=== PATIENT | female | born 1985 | race Caucasian/White ===

== ENCOUNTER → 2019-01-03 | Outpatient (CLI) | payer OTHER ==
[~2019-01-03] MED LIST: TRIA15CR40 TP
--- NOTE | 2019-01-04 15:06 | RADIOLOGY IMAGING REPORT ---
FACILITY: [facility] - [place], [place] PATIENT NAME: ANNEMARIE ETIENNE : [id number] MR: [id number] V: [id number] EXAM DATE: ORDERING PHYSICIAN: CATRINA DAVIS TECHNOLOGIST: Ravinder Oden RDMS, [facility] PROCEDURE:US LEFT BREAST COMPARISON:Prior Left breast Ultrasound of 06/28/18 INDICATIONS:six month follow up FINDINGS: In the 2 o'clock position of the Left breast 6cm from the nipple there is a complex partially cystic hypoechoic structure measuring 6.1 x 4.8 x 5mm & it's decreased in size when compared to the prior study at which time it measured 2.1 x 1.5 x 2.1cm. This may represent a collapsing cyst. Due to its persistence, however, 6 month follow up recommended. The previously noted hypoechoic nodule in the 3 o'clock position of the Left breast was not identified. DIAGNOSTIC CATEGORY 3--PROBABLY BENIGN FINDING. RECOMMENDATIONS: SIX MONTH FOLLOW-UP ULTRASOUND: LEFT BREAST. IMPRESSION: BIRADS 3: Probably benign finding. A 6 month follow up Left breast Ultrasound is recommended as described. Dictated by: Alexa Corey M.D. on 01/04/2019 at 11:22 Transcribed by: KAZ on 01/04/2019 at 14:39 Approved by: Alexa Corey M.D. on 01/04/2019 at 15:05 [facility]
== END ==
LOC: US 12-27 00:23
PROVIDERS: ATTEND Obstetrics & Gynecology
DX: N63.21 Unspecified lump in the left breast, upper outer quadrant (principal); Z80.3 Family history of malignant neoplasm of breast

== ENCOUNTER 2019-04-25 04:11 | Inpatient (IN) | payer OTHER ==
[2019-04-25] MEDS ORDERED: OXYTOCIN 30 UNIT/NS 500 ML 500 ML ONE (04:36)
[2019-04-25 05:01] LABS: PLATELET COUNT, AUTOMATED 200 K/uL (150-450)
[2019-04-25] MEDS ORDERED: METOCLOPRAMIDE 10 MG/2 ML SDV IVP PRN (05:20)
[2019-04-25] MEDS ORDERED: OXYTOCIN 30 UNIT/NS 500 ML 500 ML IV PRN (05:20)
[2019-04-25] MEDS ORDERED: FAMOTIDINE(*) 20MG/50ML PREMIX 50 ML IVPB PRN (05:20)
[2019-04-25] MEDS ORDERED: LR(*) 1000 ML BAG 1,000 ML IV SCH (05:20)
[2019-04-25] MEDS ORDERED: fentaNYL CITR 100 MCG/2 ML AMP IVP PRN (05:20)
[2019-04-25] MEDS ORDERED: LIDOCAINE 1% LOCAL 300 MG/30ML INJ PRN (05:20)
[2019-04-25] MEDS ORDERED: LIDOCAINE/SOD BICARB 8.4% SYR SC PRN (05:20)
[2019-04-25] MEDS ORDERED: cefOXitin/DEX(*) 2GM/50ML PREM 50 ML IVPB PRN (05:20)
--- NOTE | 2019-04-25 05:51 | History & Physical ---
History of Present Illness Age of Patient: 33 : 2 Para or TPAL: 1 EDC per LMP: May 07, 2019 Estimated Gestational Age: 38.2 Chief Complaint Labor History of Present Illness Presents in active labor and 8 cm dilation. Pt has history of PROM at 36 weeks with subsequent . Pt carries diagnosis of M.S. and has hypothyroidism well controlled. Last U/S showed baby at 85%ile. GBS negative. Past Medical, Surgical, Family and Obstetric Histories reviewed. Please see [facility] chart. History Patient's Blood Type: A Positive Rubella Status: Immune Group B Strep Screen: Negative Obstetrical History: @ 36 weeks Allergies: Coded Allergies: No Known Drug Allergies (Unverified , 02/09/18) Family History: FH: COPD (chronic obstructive pulmonary disease) FATHER, , Age:67 FH: breast cancer MOTHER, Age:66 FH: multiple sclerosis MOTHER, Age:66 Med Rec Home Meds Active Scripts Triamcinolone Acetonide 0.1% Cr 15 Gm Tube (TRIAMCINOLONE ACETONIDE 0.1% CREAM) 15 Gm Cream..g., 1 TRACEE TP BID for 30 Days, #1 TUBE 1 Refill Prov:ANA STEVENS 02/09/18 Review of Systems All Systems Reviewed/Normal: Yes, Except as Noted Exam General Exam General Apperance: Alert/Awake/No Acute Distress Neuro: No Gross deficits Cardiovascular: Regular Rate and Rhythm Respiratory: No Respiratory Distress Abdomen: Soft, Non-Tender, Non-Distended Integumentary: Skin Intact without Lesions or Rash Psychological: Alert & Oriented X3, Appropriate Mood & Affect Cervical Dialation: 9 Cervical Effacement (%): 100 Cervical Consistency: Soft Cervical Position: Anterior Station: 0 Presentation: Vertex Fetus Heart Tone Variabilty: Moderate FHT Accelerations: 15X15 FHT Category: I Medical Decision Making Data Points Result Diagram: 04/25/19 0449 VTE Prophylasis: Adult Deep Vein Thrombosis/Pulmonary: No Pharmacological Contraindicati: Pt at Low Risk for VTE Mechanical Contraindications: Pt at Low Risk for VTE Assessment and Plan 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
[2019-04-25] MEDS ORDERED: INFLUENZA VIRUS VAC 0.5ML SYR IM ONLY ONE (07:00)
[2019-04-25] MEDS ORDERED: LANOLIN OINT 7 GM TUBE TP PRN (07:00)
[2019-04-25] MEDS ORDERED: MAGNESIUM HYDROXIDE* 30ML UDCP PO PRN (07:00)
[2019-04-25] MEDS ORDERED: HYDROCORTISONE 2.5% CR 30GM TB PR PRN (07:00)
[2019-04-25] MEDS ORDERED: APAP/HYDROCODONE 325/5 TAB PO PRN (07:00)
[2019-04-25] MEDS ORDERED: BENZOCAINE 20% 60 ML BTL TP PRN (07:00)
[2019-04-25] MEDS ORDERED: GLYCERIN/WITCH HAZEL LEAF 1 PK TP PRN (07:00)
[2019-04-25] MEDS ORDERED: ACETAMINOPHEN 325 MG TAB PO PRN (07:00)
--- NOTE | 2019-04-25 07:02 | OB Delivery Note ---
Delivery Note Vaginal Delivery Type: Spont. Vaginal Delivery Delivery Date: Apr 25, 2019 Delivery Time: 06:42 Estimated Gestational Age(wks): 38.2 Delivery Anesthesia: Epidural Sex: Female [place] Apgars: 1 Minute (8), 5 Minute (9) Estimated Blood Loss: 100 Notes: Presented in labor and progressed to 8 cm rapidly. AROM at 0533 and progressed to complete. Pushing effectively brought baby to in DAVID position. Pe rineum stabilized and delivery over intact perineum. Rest of baby delivered without difficulty. Placenta delivered spontaneous and intact. No complications. Strategic Buyer in Attendence: No Copies to: CATRINA DAVIS MD ; CATRINA DAVIS MD Apr 25, 2019 07:02
[2019-04-25] MEDS: IBUPROFEN 800 MG TAB PO SCH ×2 (07:36→17:17)
[2019-04-25] MEDS ORDERED: LR(*) 1000 ML BAG 1,000 ML ONE (08:29)
[2019-04-25 09:00] VITALS: BP 94/51
[2019-04-25] MEDS: DOCUSATE CALCIUM 240 MG CAP PO SCH (10:05)
[2019-04-25 12:30] VITALS: BP 98/55
[2019-04-25 14:59] VITALS: BP 97/61
[2019-04-25 19:45] VITALS: BP 101/59
[2019-04-25 23:50] VITALS: BP 104/57
[2019-04-26] MEDS: IBUPROFEN 800 MG TAB PO SCH ×2 (01:14→08:45)
[2019-04-26 05:00] VITALS: BP 108/66
[2019-04-26] MEDS ORDERED: DIPHTH/TETANUS/ACEL. PERTUSSIS IM ONLY ONE (07:00)
[2019-04-26] MEDS ORDERED: MEASLES,MUMP,RUBELLA VAC 0.5ML SUBQ ONE (07:00)
--- NOTE | 2019-04-26 08:24 | OB/GYN Progress Note ---
OB Subjective Progress Notes Subjective Ambulating and voiding well. Pain well controlled. Bleeding light. GI: NEG Nausea : Voiding Well Pain: Mild OB Objective Physical Exam Vital Signs Date Time Temp Pulse Resp B/P (MAP) Pulse Ox O2 Delivery O2 Flow Rate FiO2 04/26/19 05:00 97.2 77 18 108/66 (80) 95 Room Air Intake and Output 04/26/19 07:02 Intake Total 240 ml Balance 240 ml Intake Oral 240 ml # Voids 1 General Appearance: Alert/Awake/No Acute Distress Neurological: No Gross deficits Cardiovascular: Normal Rhythm & Peripheral Pulses, Regular Rate and Rhythm Respiratory: No Respiratory Distress, Clear to Auscultation Abdomen: Soft, Non-Tender, Non-Distended, Fundus Firm, Non-Tender Integumentary: Skin Intact without Lesions or Rash Psychological: Alert & Oriented X3, Appropriate Mood & Affect Result Diagram: 04/26/19 0551 Assessment and Plan 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 Return to office at 6 weeks. CATRINA DAVIS MD Apr 26, 2019 08:24
[2019-04-26] MEDS ORDERED: IBUP800T37 PO (08:25)
[2019-04-26] MEDS ORDERED: LOR5/325 PO (08:25)
--- NOTE | 2019-04-26 08:27 | OB/GYN Discharge Summary ---
Discharge Summary Reason for Hosp/Final Diag: (1) Labor without complication (2) 38 weeks gestation of (3) care and examination immediately after delivery Hospital Course & Plan: Reviewed discharge instructions and precautions. Return to office at 6 weeks. Lates Vital Signs Vital Signs Date Time Temp Pulse Resp B/P (MAP) Pulse Ox O2 Delivery O2 Flow Rate FiO2 04/26/19 05:00 97.2 77 18 108/66 (80) 95 Room Air Result Diagram: 04/26/19 0551 Condition: Improved Discharge: Home, Self [facility] Meds Active Scripts Hydrocodone Bit/Acetaminophen (HYDROCODON-ACETAMINOPHEN 5-325) 1 Each Tablet, 1- 2 EACH PO Q4H PRN for PAIN, #10 TAB 0 Refills Prov:CATRINA KRUEGER MD 04/26/19 Triamcinolone Acetonide 0.1% Cr 15 Gm Tube (TRIAMCINOLONE ACETONIDE 0.1% CREAM) 15 Gm Cream..g., 1 TRACEE TP BID for 30 Days, #1 TUBE 1 Refill Prov:ANA STEVENS 02/09/18 Follow up Referrals: HE[facility] SPLITTER - In 6 Weeks @ [facility] with CATRINA KRUEGER MD Follow up with: Dr. Krueger [phone] Follow up in: 6 wks PP or PO Discharge Diet: As Tolerates Discharge Activity: As Tolerates, No Heavy Lifting x 6 wks, No Heavy Lifting > 10lb, Pelvic Rest Copies to: CATRINA KRUEGER MD ; CATRINA KRUEGER MD Apr 26, 2019 08:27
[2019-04-26] MEDS: DOCUSATE CALCIUM 240 MG CAP PO SCH ×2 (08:45→09:00)
[2019-04-26 10:51] VITALS: BP 110/63
== END 2019-04-26 12:20 | disposition home or self-care (01) | DRG 807 ==
LOC: OB 04:11
PROVIDERS: ADMIT Obstetrics & Gynecology; ATTEND Obstetrics & Gynecology
PROC: 10E0XZZ Delivery of Products of Conception, External Approach (ICD-10-PCS; principal; 2019-04-25)
PROC: 10907ZC Drainage of Amniotic Fluid, Therapeutic from Products of Conception, Via Natural or Artificial Opening (ICD-10-PCS; 2019-04-25)
DX: O99.354 Diseases of the nervous system complicating childbirth (principal); Z37.0 Single live birth; G35 Multiple sclerosis; O99.284 Endocrine, nutritional and metabolic diseases complicating childbirth; E03.9 Hypothyroidism, unspecified; Z3A.38 38 weeks gestation of pregnancy
CPT/HCPCS: 36415; 85025; 85027; 86850; 86900; 86901; J2590; J7120